=== PATIENT | female | born 1980 | race Caucasian/White ===

== ENCOUNTER → 2016-07-30 | Outpatient (CLI) | payer BC | END | disposition home or self-care (01) | LOC: C.LAB1850 10:29 | PROVIDERS: ATTEND Obstetrics & Gynecology | DX: Z36 Encounter for antenatal screening of mother (principal) ==

== ENCOUNTER → 2016-08-27 | Outpatient (CLI) | payer BC ==
[2016-08-27 17:34] LABS: URINE APPEARANCE CLEAR (CLEAR); URINE BILIRUBIN NEG (NEG); URINE COLOR YELLOW; URINE NITRITE NEG (NEG); UROBILINOGEN NEG (NEG)
[2016-08-27 17:39] LABS: MANUAL MICROSCOPIC REQUIRED? NO; REVIEW REQ? NO
[2016-08-31 07:04] LABS: CHLAMYDIA TRACH RNA*** NOT DETECTED (NOT DETECTED); GC (NEIS GONORRHOEAE)RNA** NOT DETECTED (NOT DETECTED)
== END | disposition home or self-care (01) ==
LOC: C.LABSPEC 16:18
PROVIDERS: ATTEND Obstetrics & Gynecology
DX: O09.529 Supervision of elderly multigravida, unspecified trimester (principal); Z3A.00 Weeks of gestation of pregnancy not specified

== ENCOUNTER → 2016-08-28 | Outpatient (CLI) | payer BC ==
[~2016-08-28] MED LIST: PREN1TAB29 PO
== END | disposition home or self-care (01) ==
LOC: C.PAPS 10:16
PROVIDERS: ATTEND Obstetrics & Gynecology
DX: O09.529 Supervision of elderly multigravida, unspecified trimester (principal); Z3A.00 Weeks of gestation of pregnancy not specified

== ENCOUNTER → 2016-10-14 | Outpatient (CLI) | payer BC ==
[2016-10-14 13:18] LABS: GTGD 50 Grams
== END | disposition home or self-care (01) ==
LOC: C.LAB1850 09:16
PROVIDERS: ATTEND Obstetrics & Gynecology
DX: O09.529 Supervision of elderly multigravida, unspecified trimester (principal); Z3A.00 Weeks of gestation of pregnancy not specified

== ENCOUNTER → 2017-01-07 | Outpatient (CLI) | payer BC ==
[2017-01-07 15:52] LABS: URINE APPEARANCE CLOUDY (CLEAR); URINE BILIRUBIN NEG (NEG); URINE COLOR YELLOW; URINE NITRITE NEG (NEG); URINE SPECIFIC GRAVITY 1.019 (1.000-1.030); UROBILINOGEN NEG (NEG)
[2017-01-07 15:53] LABS: MANUAL MICROSCOPIC REQUIRED? NO; REVIEW REQ? NO
[2017-01-07 19:02] LABS: GTGD 50 Grams
== END | disposition home or self-care (01) ==
LOC: C.LAB1850 13:52
PROVIDERS: ATTEND Obstetrics & Gynecology
DX: O09.522 Supervision of elderly multigravida, second trimester (principal); Z3A.00 Weeks of gestation of pregnancy not specified

== ENCOUNTER → 2017-03-03 | Outpatient (CLI) | payer BC | END | disposition home or self-care (01) | LOC: C.LABSPEC 15:17 | PROVIDERS: ATTEND Obstetrics & Gynecology | DX: O09.523 Supervision of elderly multigravida, third trimester (principal) ==

== ENCOUNTER 2017-03-22 05:23 | Inpatient (IN) | payer BC ==
--- NOTE | 2017-03-19 15:25 | PAT Medication Instructions ---
Service Date Mar 19, 2017. Current Home Medication List Vit W/ Ferrous Fumara (), 1 TAB PO QPM Medication Instructions For Your Scheduled Surgery - Take the following medications as scheduled the night before surgery: Vit W/ Ferrous Fumara (), 1 TAB PO QPM Nothing to eat or drink after midnight If you have any questions please call us at [phone] or [phone] or [phone]
[2017-03-19 15:41] LABS: BASO % 0.1 %; BASO ABS # 0.01 K/uL (0-0.2); COMPLETE YES; EOS % 0.4 %; HEMATOCRIT 34.1 % (37-47); IG% 0.4 %; LYMPH ABS # 1.14 K/uL (1.2-3.4); MEAN CELL VOLUME 93.9 fL (80-100); MEAN CORPUSCULAR HEMOGLOBIN 31.7 pg (25-34); MEAN CORPUSCULAR HGB CONC 33.7 g/dl (32-36); MEAN PLATELET VOLUME 11.5 fL (7.4-10.4); MONO % 9.4 %; NEUT % 75.7 %; PLATELET COUNT 166 K/uL (130-400); RED BLOOD COUNT 3.63 M/uL (4.2-5.4); WHITE BLOOD COUNT 8.17 K/uL (4.8-10.8)
--- NOTE | 2017-03-19 16:31 | HISTORY & PHYSICAL EXAMINATION ---
DATE OF ADMISSION: 03/22/2017 CHIEF COMPLAINT: Planned section. HISTORY OF PRESENT ILLNESS: A 36-year-old 4, para 2-0-1-2, who presents for discussion of planned section on 03/22/2017, when she is 39+ weeks estimated gestational age. Today, the patient reports good movement with no leaking fluid or bleeding. She reports no contractions. She is still having some sinus symptoms/drainage and she is yet to see her primary care doctor or [facility] as she had planned. She is planning a section on 03/22/2017. She did have an NST 2 days ago and reports good movement since then. LABS: Rh positive, rubella immune, and GBS negative. COURSE: Complicated by prior section x2 and advanced maternal age. OBSTETRICAL HISTORY: x2 and SAB x1. GYNECOLOGIC HISTORY: No abnormal Pap smears and no STDs. PAST MEDICAL HISTORY: Anxiety. Discontinued Xanax with positive home test. History of anemia, history of IBS and GLUTEN ALLERGY. PAST SURGICAL HISTORY: x2, dental implants, and wisdom teeth extraction. ALLERGIES: PENICILLIN LEADS TO HIVES AND LATEX ADHESIVE LEADS TO RASH. MEDICATIONS: Vitamins and Tums. SOCIAL HISTORY: No tobacco, alcohol or street drug use. FAMILY HISTORY: No congenital anomalies or mental retardation. REVIEW OF SYSTEMS: Nine systems within the chart and within normal limits. PHYSICAL EXAMINATION: VITAL SIGNS: Height 5 feet 5 inches and weight 181 pounds. Urine dips, trace protein and negative glucose. HEART: Regular rate and rhythm. LUNGS: Clear to auscultation bilaterally. ABDOMEN: Soft, gravid, and nontender. Fundal height 36 cm. heart tones 145 beats per minute. EXTREMITIES: No edema. ASSESSMENT: 1. A 39+ weeks estimated gestational age on the day of her admission. 2. Prior section x2. Plans repeat section. 3. Advanced maternal age. PLAN: We will admit the patient on Wednesday for planned section. She is aware of risks, alternatives and complications. She is advised to consider Nasonex treatment per package directions, which is over the counter and/or see family doctor or [facility] for review of her other symptoms. She is given her preop and postop instructions and course for the planned on Wednesday. KENNETH
[~2017-03-22] VITALS: Ht 165.1 cm; Wt 82.3 kg
[2017-03-22] VITALS (16 sets, daily range): BP systolic 83–93; BP diastolic 48–57; PULSE 52–61; TEMP 36.5–36.8; O2SAT 94–96; Ht 165.1 cm; Wt 82.3 kg
[2017-03-22 05:53] LABS: BASO % 0.1 %; BASO ABS # 0.01 K/uL (0-0.2); EOS % 0.3 %; HEMATOCRIT 34.8 % (37-47); IG% 0.2 %; LYMPH % 14.3 %; LYMPH ABS # 1.43 K/uL (1.2-3.4); MEAN CELL VOLUME 93.5 fL (80-100); MEAN CORPUSCULAR HEMOGLOBIN 31.5 pg (25-34); MEAN PLATELET VOLUME 11.2 fL (7.4-10.4); MONO % 7.2 %; NEUT % 77.9 %; PLATELET COUNT 163 K/uL (130-400); RED BLOOD COUNT 3.72 M/uL (4.2-5.4); WHITE BLOOD COUNT 9.98 K/uL (4.8-10.8)
[2017-03-22 05:56] LABS: COMPLETE YES; MEAN CORPUSCULAR HGB CONC 33.6 g/dl (32-36)
[2017-03-22] MEDS: LACTATED RINGER'S 1000ML 1,000 ML IV SCH ×2 (05:58→07:05)
[2017-03-22] MEDS ORDERED: CEFAZOLIN IV 2,000 MG in SYRINGE 0 ML IV SCH (06:00)
[2017-03-22] MEDS ORDERED: CITRIC ACID/SODIUM CITRATE 15 ML UDC PO ONE (06:30)
[2017-03-22] MEDS ORDERED: FENTANYL CITRATE INJ 50 MCG/1 ML 2 ML VIAL ONE (07:22)
[2017-03-22] MEDS ORDERED: MORPHINE SULFATE 1MG/1ML 30ML VIAL IV ONE (07:22)
[2017-03-22] MEDS ORDERED: ONDANSETRON INJ 2 MG/ML 2 ML VIAL ONE (07:23)
[2017-03-22] MEDS ORDERED: OXYTOCIN INJ 10 UNITS/ML VIAL ONE (07:23)
--- NOTE | 2017-03-22 07:24 | History & Physical Bridge Note ---
H&P Re-Evaluation Bridge Note: I have examined the patient, reviewed the History & Physical and in the interval since the performance of the History & Physical I have noted the following changes of clinical significance: No changes noted
--- NOTE | 2017-03-22 08:23 | [facility] Post Operative Brief Note ---
Immediate Operative Summary Operative Date Mar 22, 2017. Pre-Operative Diagnosis Prior Caesarean Section X 2, desire for repeat Caesarean Section Post-Operative Diagnosis Same with delivery of living female child at 0755 Procedure(s) Performed Repeat Low Transverse Caesarean Section Surgeon Dr. Alesia Porter Laborer [employer] Surgeon(s) Dr. Ann Magallanes Estimated Blood Loss 600 ml Findings DELIVERED VIABLE FEMALE , APGARS 8, 10. WEIGHT 8#13. NORMAL UTERUS, NORMAL FALLOPIAN TUBES AND OVARIES BILATERALLY. Fluids (cc crystalloids) 1500 cc Specimens a. placenta- hold b. cord blood specimen Drains BROWN TO STRAIGHT DRAINAGE, CLEAR AT END OF CASE Anesthesia SPINAL Complication(s) None Disposition Recovery Room / PACU
[2017-03-22] MEDS ORDERED: KETOROLAC TROMETHAMINE 30 MG/ML VIAL IV. PRN (08:30)
[2017-03-22] MEDS ORDERED: MAGNESIUM HYDROXIDE SUSP 30 ML UDC PO PRN (08:30)
[2017-03-22] MEDS ORDERED: LANOLIN OINT EXT PRN ×2 (08:30)
[2017-03-22] MEDS ORDERED: SUPERCREAM 0.870 % 15GM JAR EXT PRN (08:30)
[2017-03-22] MEDS ORDERED: LACTATED RINGER'S 1000ML 500 ML IV PRN (08:54)
[2017-03-22] MEDS ORDERED: NALOXONE HCL INJ 1 MG in SODIUM CHLORIDE 0.9% 1000ML 1,000 ML IV PRN (08:54)
[2017-03-22] MEDS ORDERED: SODIUM CHLORIDE 0.9% 1000ML 1,000 ML IV PRN (08:54)
[2017-03-22] MEDS ORDERED: NALOXONE HCL INJ 0.08 MG in SYRINGE 1.8 ML IV PRN (08:54)
--- NOTE | 2017-03-22 08:59 | Anesthesiology Progress Note ---
Anesthesia Post Op Note Date & Time Mar 22, 2017 at 08:58 Notes Mental Status: alert / awake / arousable, participated in evaluation Pt Amnestic to Procedure: Yes Nausea / Vomiting: adequately controlled Pain: adequately controlled Airway Patency, RR, SpO2: stable & adequate BP & HR: stable & adequate Hydration State: stable & adequate Anesthetic Complications: no major complications apparent
[2017-03-22] MEDS ORDERED: EpHEDrine SULFATE INJ 50 MG/ML AMP IV PRN ×2 (09:00)
[2017-03-22] MEDS ORDERED: ONDANSETRON INJ 2 MG/ML 2 ML VIAL IV PRN ×2 (09:00)
[2017-03-22] MEDS ORDERED: NALBUPHINE HCL INJ 10 MG/ML AMP IV PRN (09:00)
[2017-03-22] MEDS ORDERED: NO NARCOTICS OR SEDATIVES SCH (09:00)
[2017-03-22] MEDS ORDERED: NALOXONE HCL 0.4 MG/1 ML VIAL/CARP IV PRN (09:00)
[2017-03-22] MEDS ORDERED: MoRPHine SULFATE PF 1 MG/ML 10 ML AMP/VIAL EPI PRN ×2 (09:00→12:15)
[2017-03-22] MEDS ORDERED: FENTANYL CITRATE INJ 50 MCG/1 ML 2 ML VIAL IV PRN (09:00)
[2017-03-22] MEDS ORDERED: ATROPINE SULFATE 0.1 MG/ML 5ML SYR IV PRN (09:00)
[2017-03-22] MEDS ORDERED: DiphenhydrAMINE HCL 50 MG/ML VIAL IV PRN (09:00)
--- NOTE | 2017-03-22 09:17 | OPERATIVE REPORT ---
DATE OF OPERATION: 03/22/2017 PREOPERATIVE DIAGNOSES: 1. A 39-week intrauterine . 2. Prior section x2, desires repeat section. POSTOPERATIVE DIAGNOSES: Same. PROCEDURE: Repeat low transverse section. SURGEON: Dr. Alesia Porter. PIPE PROCESSOR: Dr. Magallanes, PGY1. ANESTHESIA: Spinal with Duramorph. IV FLUIDS: 1500 mL. ESTIMATED BLOOD LOSS: 600 mL. FINDINGS: Viable female infant, Apgars 9 and 9, weight 8 pounds 13 ounces. Normal uterus, tubes and ovaries bilaterally. INDICATIONS: A 36-year-old 3, para 2-0-0-2, with 2 prior sections, who desires repeat section. She is 39+ weeks estimated gestational age today. DESCRIPTION OF PROCEDURE: The patient was taken to the operating room and identified. After adequate spinal anesthesia was obtained, she was placed in the supine position with a leftward tilt and prepped and draped in the usual sterile fashion. The knife was used to create a Pfannenstiel skin incision that was carried down to the underlying layer of fascia. The fascia was nicked in the midline and this opening was extended laterally using Kumar scissors. Ryan clamps were placed on the superior and inferior aspects of the fascial incision, tenting it upwards and the underlying rectus muscles were dissected off the overlying fascia both sharply and bluntly using Kumar scissors. The peritoneal cavity was bluntly entered into. This opening was stretched. The bladder blade was placed. The vesicouterine peritoneum was elevated with a Debby clamp. It was opened up into sharply using Metzenbaum scissors and extended laterally. The bladder flap was then created digitally. The bladder blade was replaced. The knife was used to create a hysterotomy that was then stretched. The operators hand was placed through the hysterotomy and the cephalic was elevated. The bladder blade was removed. With fundal pressure, the cephalic was delivered. The mouth and nose were bulb suctioned. A loose nuchal cord was noted and delivered through with further fundal pressure. The was vigorous and crying at . The cord was doubly clamped and cut. The was handed off to the awaiting pediatricians. Cord blood was obtained. The placenta was manually expressed. The uterus was exteriorized and cleared of all clots and debris. The hysterotomy was closed in a running interlocking fashion using 0 Vicryl followed by a second imbricating layer of 0 Vicryl for excellent hemostasis. The pelvis was irrigated. The uterus was returned to the abdomen. The gutters were cleared of all clots and debris. The hysterotomy was reinspected and noted to be hemostatic. The fascia was then closed in a running fashion using 0 Vicryl. Subcutaneous fat was irrigated. It was reapproximated using 2-0 chromic. The skin was then closed in a subcuticular fashion using 4-0 Vicryl. All sponge, lap and needle counts were correct x2. The patient was taken to recovery room in stable condition. I attest to the content of the Intraoperative Record and any orders documented therein. Any exceptions are noted below. KENNETH
[2017-03-22] MEDS: KETOROLAC TROMETHAMINE 30 MG/ML VIAL IV. PRN ×3 (09:29→22:51)
[2017-03-22] MEDS: MEPERIDINE HCL 25 MG/ML CARP IV PRN ×2 (10:14→11:04)
[2017-03-22] MEDS: OXYTOCIN INJ 20 UNITS in LACTATED RINGER'S 1000ML 1,000 ML IV SCH ×2 (10:37→18:22)
[2017-03-22] MEDS ORDERED: MoRPHine SULFATE 2 MG/ML CARP IV PRN (12:15)
[2017-03-22] MEDS ORDERED: PROMETHAZINE HCL INJ 12.5 MG in SODIUM CHLORIDE 0.9% 50ML 50 ML IV PRN (12:15)
[2017-03-22] MEDS: SIMETHICONE 80 MG CHEW PO SCH ×3 (12:43→20:54)
[2017-03-22] MEDS: DOCUSATE SODIUM 100 MG CAP PO SCH (20:55)
[2017-03-23] VITALS (7 sets, daily range): BP systolic 90–96; BP diastolic 50–62; PULSE 61–75; TEMP 36.4–36.9; O2SAT 95–99
[2017-03-23] MEDS ORDERED: DC INTRASPINAL MORPHINE SCH (01:30)
[2017-03-23] MEDS ORDERED: ONDANSETRON INJ 2 MG/ML 2 ML VIAL IV PRN (01:31)
[2017-03-23] MEDS ORDERED: OXYCODONE/ACETAMINOPHEN 5-325 TAB PO PRN (01:31)
[2017-03-23] MEDS: IBUPROFEN 600 MG TAB PO PRN ×4 (03:34→20:08)
[2017-03-23] MEDS: OXYCODONE/ACETAMINOPHEN 5-325 TAB PO PRN ×4 (03:34→20:08)
--- NOTE | 2017-03-23 06:30 | Progress Note ---
Subjective Mar 23, 2017. Subjective conversation w/ patient, physical exam Ambulation: ambulating normally Voiding: no voiding problems Passing Gas: Yes Diet Tolerance: Clear Liquids Lochia: Small Feeding Type: Breast Feeding Pain: having some incisional pain Objective Vital Signs Date Time Temp Pulse Resp B/P (MAP) Pulse Ox O2 Delivery O2 Flow Rate FiO2 03/23/17 03:30 36.9 61 18 92/60 (71) Room Air 03/23/17 01:15 18 95 03/23/17 00:15 18 96 03/22/17 23:15 18 96 03/22/17 23:00 36.8 61 18 83/50 (61) 95 Room Air 03/22/17 23:00 95 Room Air 03/22/17 22:15 18 95 03/22/17 21:15 18 95 03/22/17 20:15 18 96 03/22/17 19:15 18 95 03/22/17 19:15 36.7 54 18 93/57 (69) 95 Room Air 03/22/17 18:25 16 96 03/22/17 17:25 16 95 03/22/17 16:25 16 96 03/22/17 15:25 36.5 52 16 88/53 (65) 96 Room Air 03/22/17 15:25 16 96 03/22/17 15:25 96 Room Air 03/22/17 14:55 20 96 03/22/17 13:55 16 95 03/22/17 13:55 16 96 03/22/17 12:55 20 96 03/22/17 11:55 20 94 03/22/17 11:50 94 Room Air 03/22/17 11:50 94 Room Air 03/22/17 11:50 36.5 56 20 86/48 (61) 94 Room Air Physical Exam General Appearance: WELL-APPEARING, WD/WN, NO APPARENT DISTRESS Respiratory/Chest: lungs clear Cardiovascular: regular rate, rhythm Abdomen: non tender, soft Fundus: Firm, Relation to Umbilicus (2 down) Incision Description: Clean, Dry & Intact (dried blood) Extremities: no pedal edema Laboratory Results Last 24 Hours Test 03/23/17 06:00 Assessment and Plan Post-, Post-Op Day#: 1 Continue Routine Care: stable, routine care. use po pain meds for pain control. already voiding well. + flatus, plan regular diet, gluten free. cbc pending. discussed her c/s and incision.
[2017-03-23 07:08] LABS: COMPLETE YES; EOS % 0.7 %; HEMATOCRIT 28.9 % (37-47); IG% 0.4 %; LYMPH % 11.6 %; LYMPH ABS # 0.85 K/uL (1.2-3.4); MEAN CELL VOLUME 94.1 fL (80-100); MEAN CORPUSCULAR HEMOGLOBIN 31.3 pg (25-34); MEAN CORPUSCULAR HGB CONC 33.2 g/dl (32-36); MEAN PLATELET VOLUME 10.8 fL (7.4-10.4); MONO % 7.5 %; NEUT % 79.8 %; PLATELET COUNT 122 K/uL (130-400); RED BLOOD COUNT 3.07 M/uL (4.2-5.4)
--- NOTE | 2017-03-23 07:54 | Anesthesiology Progress Note ---
Anesthesia Post Op Note Date & Time Mar 23, 2017 at 07:54 Vital Signs Pain Intensity: 4.0 Vital Signs Past 12 Hours Date Time Temp Pulse Resp B/P (MAP) Pulse Ox O2 Delivery O2 Flow Rate FiO2 03/23/17 03:30 36.9 61 18 92/60 (71) Room Air 03/23/17 01:15 18 95 03/23/17 00:15 18 96 03/22/17 23:15 18 96 03/22/17 23:00 36.8 61 18 83/50 (61) 95 Room Air 03/22/17 23:00 95 Room Air 03/22/17 22:15 18 95 03/22/17 21:15 18 95 03/22/17 20:15 18 96 Notes Mental Status: alert / awake / arousable, participated in evaluation Pt Amnestic to Procedure: Yes Nausea / Vomiting: adequately controlled Pain: adequately controlled Airway Patency, RR, SpO2: stable & adequate BP & HR: stable & adequate Hydration State: stable & adequate Neuraxial Anesthesia: sensory block resolved Anesthetic Complications: no major complications apparent
[2017-03-23] MEDS: SIMETHICONE 80 MG CHEW PO SCH ×4 (08:06→20:09)
[2017-03-23] MEDS: DOCUSATE SODIUM 100 MG CAP PO SCH ×2 (08:06→20:09)
[2017-03-23] MEDS: PRENATAL VITAMIN TAB PO SCH (08:06)
[2017-03-23] MEDS: FERROUS SULFATE 325 MG TAB PO SCH (08:06)
[2017-03-23] MEDS: SENNA 8.6 MG TAB PO PRN (17:30)
[2017-03-24] MEDS: IBUPROFEN 600 MG TAB PO PRN ×4 (00:19→13:33)
[2017-03-24] MEDS: OXYCODONE/ACETAMINOPHEN 5-325 TAB PO PRN ×4 (00:20→13:34)
[2017-03-24] MEDS: SENNA 8.6 MG TAB PO PRN (05:35)
[2017-03-24 06:44] LABS: HEMATOCRIT 28.4 % (37-47)
--- NOTE | 2017-03-24 07:34 | Progress Note ---
Subjective Mar 24, 2017. Subjective conversation w/ patient (pt c/o gas, and sinus congestion x 1 month. Requesting abx.), physical exam, chart review, lab review Ambulation: ambulating normally Voiding: no voiding problems Passing Gas: Yes Diet Tolerance: Regular Diet Lochia: Moderate Feeding Type: Breast Feeding Pain: CONTROLLED Review of Systems Respiratory: No shortness of breath Abdomen: No nausea, No vomiting Female : No dysuria Objective Vital Signs Date Time Temp Pulse Resp B/P (MAP) Pulse Ox O2 Delivery O2 Flow Rate FiO2 03/23/17 23:45 99 Room Air 03/23/17 23:45 36.4 66 18 96/61 (73) Room Air 03/23/17 16:10 98 Room Air 03/23/17 15:37 36.6 75 18 90/50 (63) Room Air 03/23/17 08:35 Room Air 03/23/17 08:25 Room Air 03/23/17 08:03 36.5 63 18 92/62 (72) Room Air Physical Exam General Appearance: WELL-APPEARING, WD/WN, NO APPARENT DISTRESS, other (+ for sinus tenderness over frontal) Respiratory/Chest: lungs clear, normal breath sounds, no respiratory distress Cardiovascular: regular rate, rhythm, no gallop Abdomen: normal bowel sounds, soft Fundus: Firm, Tender (appropriately tender), Relation to Umbilicus (1 below U) Incision Description: Clean, Dry & Intact Extremities: non-tender, normal inspection Laboratory Results Last 24 Hours Test 03/24/17 06:30 Hemoglobin 9.3 g/dL Hematocrit 28.4 % Assessment and Plan Post-Op Day#: 2 Continue Routine Care: Resident Physician Supervision Note: I interviewed and examined the patient. Discussed with Dr. Magallanes and agree with findings and plan as documented in the note. Any exceptions or clarifications are listed here: [None] Documented By: Zoey Reardon Jyoti 36 yof now 3, repeat C/S 03/22. O+/GBS-/RI Vitals reviewed and wnl. Hgb 11.5, 11.7, 9.6, 9.3. Pt doing well clinically and desires to go home. Requests abx for her sinus infection, and antifungal since she says she always gets a yeast infection with abx. Encouraged her to follow up with PCP which she says she has not established yet. Also recommended nasal steroid spray at least 5 days, 2 sprays per nostril. Counselled on dc instructions. Continue routine care. Dr. Arellano will write for amoxicillin, diflucan and percocet. MARTÍN MAGALLANES FMR PGY 1 Resident Tracking Resident Involvement: Resident Care Provided Care Provided: OB Delivery
--- NOTE | 2017-03-24 07:39 | Discharge Instructions ---
Discharge Instructions Date of Service Mar 24, 2017. Admission Reason for Admission: Previous Section Discharge Discharge Diagnosis / Problem: Repeat section Discharge Goals Goal(s): Routine recovery after Medications Continue Dispensed Medications: supercream, lansinoh Activity Recommendations Activity Limitations: per Instructions/Follow-up section . Instructions / Follow-Up Instructions / Follow-Up ACTIVITY RECOMMENDATIONS: * Gradual return to full activity over the next 2-3 weeks. * No lifting - nothing heavier than baby over the next 2-3 weeks. * Do not engage in vigorous exercise, sexual activity or sports until cleared by your physician. * Do not drive or operate any motorized equipment until cleared by your physician. * You may shower/bathe daily. MEDICATIONS: For discomfort or pain, you may use Acetaminophen (Tylenol), Ibuprofen (Advil), or Naproxen (Aleve) following the package directions. For constipation you may use Colace following the package directions. BREAST CARE: If you are not breast feeding: * Wear a supportive bra 24 hours a day for one to two weeks. * Avoid stimulating your breasts and nipples as much as possible during the first few weeks after delivery. * When taking a shower, have the warm water hit your back, not breasts. * When your breasts feel full, apply ice packs. Usually three to four times a day helps ease the discomfort. * Take a mild pain medication (Tylenol / Motrin) when you are uncomfortable. If breast feeding: * Use breast milk to lubricate nipples. Lansinoh cream may be used for sore nipples. You do not need to remove cream prior to breast feeding. If using a different brand of cream, check the label for directions regarding removal of cream prior to nursing. * Wear a supportive bra. * If having problems with breasts or breast feeding, call a business objects consultant or your health care provider. SPECIAL CARE INSTRUCTIONS: When you are discharged from the hospital, it is important for you to follow the instructions listed below: * During the first week at home, you should be able to care for yourself and your baby. In addition, the usual light household activities are encouraged. * Limit your activities to the way you feel. Do not try to clean the house or move furniture. Be sensible. * If you actively engage in sports and have done so up until the time of your delivery, you may resume these activities as soon as you feel able. This may take up to one month or even longer. Use good judgment. * Continue to take your vitamins for at least six weeks after the of your baby. * Your diet need not be limited unless you were on a special diet before your delivery. Breast-feeding mothers need around 2500 calories per day and at least 64-80 ounces of fluid per day (8 to 10 glasses). * You should eat foods from the four major food groups. Crash diets or fad diets are to be avoided. Eating lean meats, fresh fruits and vegetables, low-fat dairy products, high fiber foods and a regular exercise program, will help you get back to your pre- weight without putting your health at risk. * Constipation is sometimes a problem after delivery. Take a mild laxative as needed. If breast feeding, Milk of Magnesia is acceptable to use. You may use a suppository or Fleets enema. * A daily shower or tub bath is suggested. Wash incision daily with warm soapy water and pat dry. It doesn't need to be covered unless drainage is present. * A bloody vaginal discharge will usually continue until around four weeks . A small amount of bleeding may continue for as long as six weeks. Vaginal discharge changes from the bright red bleeding after delivery to pink then brownish and finally yellowish-pink before becoming white and disappearing. * Bleeding may increase with activity. Your first period may come in 4-8 weeks. If you are breast feeding, your period may be delayed even longer. * Kline (sex) can begin whenever both you and your partner feel comfortable and do not have any form of genital infection. It is recommended that you wait at least six weeks for internal and external healing to occur. If you have questions, please talk to your health care practitioner. A condom should be used to prevent infection and . * Foreplay, gentle intercourse and lubrication is very important the first several times to prevent pain. A water-based lubricant such as K-Y jelly or Astroglide may be used. * If you have RH negative blood and your baby is RH positive, you will receive RHOGAM by injection prior to discharge. The nurse will give you a card to keep with you that has the date and place that you received RHOGAM after delivery. * During your care, you had a Rubella screen done to check for the presence of rubella antibodies in your blood. If your test was negative, you will receive a Rubella vaccine prior to discharge. This vaccine may cause a fever, soreness at the injection site and flu-like symptoms. If these symptoms persist, notify your health care practitioner. is not advised for one month after a Rubella vaccine. * Verbalizes understanding of car seat law as reviewed with patient nursing. * Car Seat hand-out given and reviewed with patient by nursing. * Shaken baby information reviewed with patient by nursing. Call you doctor if: * Heavy bleeding (saturating several pads an hour) or passing clots the size of your fist. * A fever >101 degrees F (38.3 degrees C) on two occasions four hours apart and /or chills. * Unusual pain in the pelvic or vaginal areas. * Call the doctor for any increased redness, drainage or swelling around the incision and any pain unrelieved by prescribed pain medication. * "Baby Blues" lasting longer than two weeks. If you have any questions or concerns, call your health care practitioner at . FOLLOW UP VISIT: * Please call the office at to schedule a 6 week examination. It is important you keep this appointment. It is important for you to make arrangements for either yearly or twice yearly check-ups thereafter. Current Hospital Diet Patient's current hospital diet: Regular OB Diet, Gluten Free Diet Discharge Diet Recommended Diet: Regular OB Diet Procedures Procedures Performed: Repeat Low Transverse Caesarean Section Pending Studies Studies pending at discharge: no Medical Emergencies . Who to Call and When: Medical Emergencies: If at any time you feel your situation is an emergency, please call [phone] immediately. . Non-Emergent Contact Non-Emergency issues call your: Primary Care Provider . . "Provider Documentation" section prepared by Ann Magallanes. . VTE Core Measure Inpt VTE Proph given/why not?: SCD's
[2017-03-24] MEDS ORDERED: DOXY-300 PO (07:46)
[2017-03-24] MEDS ORDERED: FLUC150T PO (07:46)
[2017-03-24] MEDS: SIMETHICONE 80 MG CHEW PO SCH (08:01)
[2017-03-24] MEDS: FERROUS SULFATE 325 MG TAB PO SCH (08:01)
[2017-03-24] MEDS: DOCUSATE SODIUM 100 MG CAP PO SCH (08:02)
[2017-03-24] MEDS: PRENATAL VITAMIN TAB PO SCH (08:02)
[2017-03-24 08:05] VITALS: BP 107/62; PULSE 78; TEMP 36.6; O2SAT 100
[2017-03-24] MEDS ORDERED: MTR600X PO (08:18)
[2017-03-24] MEDS ORDERED: CLC100 PO (08:18)
[2017-03-24] MEDS ORDERED: OXYC-57 PO (08:18)
[2017-03-24 09:17] VITALS: BP 107/62; PULSE 61; TEMP 36.6; O2SAT 100
[2017-03-24 14:05] VITALS: BP_DIAS 62; PULSE 61; TEMP 36.6
--- NOTE | 2017-03-25 13:11 | Discharge Summary ---
Discharge Summary Date of Service Mar 22, 2017. Discharge date: 03/24/17 Discharge Summary Admission diagnosis: 39 week ega , prior c/s x 2, desires repeat c/s, advanced maternal age Discharge diagnosis: same Procedure: Repeat Low Transverse Section Brief history and hospital course: 36yo at 39+weeks ega presented of day of her admission for planned repeat section. She underwent the above stated procedure without incident. She had a postoperative hemoglobin of 9.3. She tolerated a regular diet, voided without problem and ambulated without problem and had good pain control. She was ready for discharge home on postoperative day #2. She continued to complain of sinus infection symptoms and the discharging physician agreed to give patient course of amoxicillin, diflucan and pain medications for recovery from her section. Of note she had complained of these symptoms in weeks prior to her delivery and was advised to see her PCP but never did. She will followup in 6 weeks for check up. She was given discharge instructions verbally and written.
== END 2017-03-24 14:05 | disposition home or self-care (01) | DRG 766 ==
LOC: C.LD 05:23 → EDSTATUS 07:30 → C.OBG 12:41
PROVIDERS: ADMIT Obstetrics & Gynecology; ATTEND Obstetrics & Gynecology
PROC: 10D00Z1 Extraction of Products of Conception, Low, Open Approach (ICD-10-PCS; principal; 2017-03-22 07:30)
DX: O99.52 Diseases of the respiratory system complicating childbirth (principal); J01.90 Acute sinusitis, unspecified; O69.81X0 Labor and delivery complicated by cord around neck, without compression, not applicable or unspecified; Z3A.39 39 weeks gestation of pregnancy; Z37.0 Single live birth